=== PATIENT | male | born 1960 | race African-American/Black ===

== ENCOUNTER 2023-02-27 10:18 | Emergency (ER) | payer OTHER ==
[2023-02-27 10:32] VITALS: BP 126/88; PULSE 73; RESP 18; TEMP 98.4; BMI 22.8
[2023-02-27] MEDS ORDERED: IBUPROFEN 600 MG TABLET (FP) PO ONE ×2 (11:06→11:23)
== END 2023-02-27 13:01 | disposition home or self-care (01) ==
LOC: JERFT 10:18 → JER 10:18 → JERFT 13:01
DX: M79.605 Pain in left leg (principal)
CPT/HCPCS: 73610-TC-LT-FY; 99283-25